=== PATIENT | male | born 1995 | race Caucasian/White ===

== ENCOUNTER 2016-10-03 20:16 | Emergency (ER) | payer OTHER ==
[~2016-10-03] VITALS: Ht 167.6 cm; Wt 70.3 kg
[2016-10-03] MEDS ORDERED: EFFEXOR 5050 MG/1 T1 PO (20:37)
[2016-10-03] MEDS ORDERED: KEFLEX500 MG PO (21:10)
[2016-10-03 21:41] VITALS: BP 122/64
== END 2016-10-03 21:42 | disposition home or self-care (01) ==
LOC: ER 20:16
DX: S61.212A Laceration without foreign body of right middle finger without damage to nail, initial encounter (principal); F10.99 Alcohol use, unspecified with unspecified alcohol-induced disorder; W25.XXXA Contact with sharp glass, initial encounter; Y93.89 Activity, other specified; Y92.008 Other place in unspecified non-institutional (private) residence as the place of occurrence of the external cause; Y99.8 Other external cause status